=== PATIENT | male | born 1960 | race American Indian/Alaskan Native ===

== ENCOUNTER 2019-05-28 07:17 | Observation (INO) | payer OTHER ==
[2019-05-28] MEDS ORDERED: SODIUM CHLORIDE 0.9% 1000 ML 1,000 ML IV ONE (08:05)
--- NOTE | 2019-05-28 08:11 | Emergency Department Report ---
ED Syncope HPI - General Stated Complaint: WEAKNESS/ABD PAIN Time Seen by Provider: 05/28/19 08:03 Source: patient, family, EMS Exam Limitations: no limitations - History of Present Illness Initial Comments: 58-year-old male with history of hypertension presents to ED following a syncopal episode this morning. states at around 6 AM, patient got up to go to the bathroom and she heard him fall. She does report loss of consciousness. At that time, worse today she took the patient's blood pressure and systolic BP was in the 200s, so she gave him his blood pressure medication to take. EMS was called, upon arrival, patient had systolic blood pressure in the 90s, and room air O2 sats was 77%. Patient is given 250 mL bolus of MS and placed on 2 L O2 and transported to the hospital. Patient also has abdominal distention since yesterday, reports abdominal discomfort. Denies nausea, vomiting, diarrhea. Patient states he has been constipated and has not had a bowel movement in 1 week. Denies any previous abdominal surgeries. Patient denies any chest pain or shortness of breath at this time. Reports mild cough and fever last week for which he was seen by his PCP and given medications. believes it was an antibiotic but she is not sure. Pt denies history of COPD. Reports past smoking history, but states he stopped "a while ago." Timing/Prior Episodes: single episode today Precipitating Factors: Positive: lightheadedness Context: standing Loss of Consciousness: brief (seconds) Current Symptoms: denies: headache, nausea - Related Data Allergies/Adverse Reactions: Allergies No Known Allergies Allergy (Verified 05/28/19 14:09) Home Medications: Ambulatory Orders Unobtainable 05/28/19 ED Review of Systems ROS: Stated complaint: WEAKNESS/ABD PAIN Other details as noted in HPI Comment: All other systems reviewed and negative Constitutional: fever. denies: chills Respiratory: cough Cardiovascular: denies: chest pain Gastrointestinal: abdominal pain, constipation. denies: nausea, vomiting, diarrhea Neurological: denies: headache ED Past Medical Hx - Medications Home Medications: Home Medications Medication Instructions Recorded Confirmed Last Taken Type Unobtainable 05/28/19 05/28/19 Unknown History ED Physical Exam - General General appearance: alert, in no apparent distress - Head Head exam: Present: atraumatic, normocephalic - Eye Eye exam: Present: normal appearance, PERRL, EOMI - ENT ENT exam: Present: mucous membranes dry - Neck Neck exam: Present: normal inspection, full ROM - Respiratory Respiratory exam: Present: rales. Absent: respiratory distress - Cardiovascular Cardiovascular Exam: Present: regular rate, normal rhythm - GI/Abdominal GI/Abdominal exam: Present: distended. Absent: tenderness - Extremities Exam Extremities exam: Present: normal inspection. Absent: pedal edema, calf tende rness - Neurological Exam Neurological exam: Present: alert, oriented X3, CN II-XII intact. Absent: motor sensory deficit - Psychiatric Psychiatric exam: Present: normal affect, normal mood - Skin Skin exam: Present: warm, dry, intact, normal color ED Course Vital Signs 05/28/19 05/28/19 05/28/19 07:54 08:00 08:16 Temperature Pulse Rate 89 Pulse Rate [ Anterior Bilateral Throughout] Respiratory 31 H Rate Respiratory Rate [Anterior Bilateral Throughout] Blood Pressure 132/64 O2 Sat by Pulse 88 100 Oximetry 05/28/19 05/28/19 05/28/19 08:30 08:45 09:01 Temperature Pulse Rate 90 92 H Pulse Rate [ Anterior Bilateral Throughout] Respiratory 17 26 H Rate Respiratory Rate [Anterior Bilateral Throughout] Blood Pressure 132/64 132/64 123/98 O2 Sat by Pulse 100 90 99 Oximetry 05/28/19 05/28/19 05/28/19 09:38 09:46 10:00 Temperature Pulse Rate Pulse Rate [ Anterior Bilateral Throughout] Respiratory Rate Respiratory Rate [Anterior Bilateral Throughout] Blood Pressure 123/98 123/98 123/98 O2 Sat by Pulse 100 98 99 Oximetry 05/28/19 05/28/19 05/28/19 10:45 11:03 11:05 Temperature 98.0 F Pulse Rate Pulse Rate [ 95 H Anterior Bilateral Throughout] Respiratory 18 Rate Respiratory 20 Rate [Anterior Bilateral Throughout] Blood Pressure O2 Sat by Pulse 97 Oximetry - Reevaluation(s) Reevaluation #1: 05/28/19 13:58 RN just reported to me that lab called, repeat lactic acid was done and returned elevated at 3.5. Initial lactic acid was normal. Vitals have been normal. Pt currently has a room and is being transported there. Will place orders for antibiotics to be given. CXR, urine and CT negative for any source of infection. Pt did have 2 bowel movements here in ED. ED Medical Decision Making - Lab Data Result diagrams: 05/28/19 08:22 05/28/19 08:22 - EKG Data -: EKG Interpreted by Me EKG shows normal: sinus rhythm, axis, intervals, QRS complexes Rate: normal - EKG Data Interpretation: other (T wave inversions inferolaterally) - Radiology Data Radiology results: report reviewed, image reviewed Critical care attestation.: If time is entered above; I have spent that time in minutes in the direct care of this critically ill patient, excluding procedure time. ED Disposition Clinical Impression: Syncope, Hypoxia, COPD with acute exacerbation, Ileus, Thrombocytopenia, Hyperbilirubinemia Disposition: 09 OP ADMIT IP TO THIS HOSP Is pt being admited?: Yes Condition: Stable Time of Disposition: 12:32
[2019-05-28 08:34] LABS: Hematocrit 32.2 % (35.5-45.6); Hemoglobin 10.8 gm/dl (11.8-15.2); Mean Corpuscular HGB Conc 34 % (32-34); Mean Corpuscular Volume 81 fl (84-94); Red Blood Count 3.97 M/mm3 (3.65-5.03)
--- NOTE | 2019-05-28 08:37 | XRay Report ---
CHEST/ABDOMEN INDICATION / CLINICAL INFORMATION: Shortness of breath, abdominal distention. COMPARISON: None available. FINDINGS: SUPPORT DEVICES: None. HEART / MEDIASTINUM: Borderline enlarged cardiac silhouette, possibly accentuated by portable techniq ue LUNGS / PLEURA: No focal pulmonary consolidation or edema. No pleural effusion No pneumothorax. ADDITIONAL FINDINGS: No significant additional findings. ABDOMEN: Nonspecific gas-filled loops of colon are noted throughout the abdomen. No definite gas dist ended loops of small bowel to suggest the presence of obstruction. No definite free intraperitoneal g as. IMPRESSION: There are multiple gas-filled loops of colon throughout the abdomen without evidence of distended sma ll bowel loops to suggest presence of obstruction. If abdominal symptoms persist, a CT may be benefic ial for further evaluation. No evidence of acute cardiopulmonary disease. Signer Name: James Zamorano MD Signed: 05/28/2019 8:33 AM Workstation Name: [id number]
[2019-05-28 08:44] LABS: Partial Thromboplastin Time 27.8 Sec. (24.2-36.6)
[2019-05-28 08:54] LABS: INR 1.28 (0.87-1.13)
[2019-05-28 09:00] LABS: Alanine Aminotransferase 48 units/L (7-56); Albumin 4.3 g/dL (3.9-5); BUN/Creatinine Ratio 30; Bilirubin,Direct 0.4 mg/dL (0-0.2); Blood Urea Nitrogen 27 mg/dL (9-20); Calcium 8.7 mg/dL (8.4-10.2); Hemolysis Index 22
--- NOTE | 2019-05-28 10:17 | Cat Scan Report ---
CT head without contrast INDICATION : syncope, injury. TECHNIQUE: Axial imaging performed from the skull apex through the skull base without the use of con trast. All CT scans at this location are performed using CT dose reduction for ALARA by means of aut omated exposure control. COMPARISON: None FINDINGS: There is significant patient motion which limits this exam. The technologist reports these are the be st images possible. Parenchyma: No acute intracranial hemorrhage or parenchymal abnormality. Ventricles: Ventricles are normal in size and appear symmetric. Soft tissues: Soft tissues including the orbits appear normal. Bones: No acute osseous abnormality. Sinuses: Sinuses and mastoid air cells are clear. IMPRESSION: No evidence of acute intracranial abnormality. The exam is limited due to significant patient motion. If neurologic symptoms persist or additional e valuation is clinically indicated, it would be reasonable to repeat this exam or an MRI of the brain once it is felt the patient may remain still. Signer Name: James Zamorano MD Signed: 05/28/2019 10:13 AM Workstation Name: [id number]
[2019-05-28] MEDS ORDERED: ALBUTEROL 2.5 MG/3 ML NEBU IH ONE (10:20)
[2019-05-28] MEDS ORDERED: IPRATROPIUM 0.02% NEBU 2.5 ML IH ONE (10:20)
--- NOTE | 2019-05-28 10:37 | Cat Scan Report ---
CT angio chest INDICATION / CLINICAL INFORMATION: hypoxia. TECHNIQUE: Axial CT images were obtained after injection of Omnipaque 350, 100 cc IV contrast using CTA protocol . 3 plane MIP / 3D reconstructions were produced. All CT scans at this location are performed using C T dose reduction for ALARA by means of automated exposure control. COMPARISON: None available. FINDINGS: The lungs contain scattered emphysema. Negative for mass, infiltrate or pleural fluid. No mediastinal mass or adenopathy. Negative for aneurysm, dissection or pulmonary embolus. Motion artifact limits evaluation of the smal l vessels at the bases. Evaluation the bones demonstrates diffuse predominantly sclerotic change at this use small lytic area s. Imaging of the upper abdomen demonstrates distended large and small bowel loops. IMPRESSION: 1. Negative for pulmonary embolus or pneumonia. 2. Diffuse bony sclerotic change with a few small lytic areas. Underlying metabolic disease is favore d over metastatic disease. Recommend clinical correlation. 3. Probable ileus. Signer Name: Chencho Hancock MD Signed: 05/28/2019 10:33 AM Workstation Name: [id number]
--- NOTE | 2019-05-28 11:12 | Cat Scan Report ---
CT ABDOMEN AND PELVIS WITH CONTRAST HISTORY: pain, abd distention. COMPARISON: None. TECHNIQUE: CT images of the abdomen and pelvis were obtained following administration of intravenous contrast. All CT scans at this location are performed using CT dose reduction for ALARA by means of automated exposure control. CONTRAST: 100 ml of intravenous contrast administered. FINDINGS: Lungs/bones: There is mild motion artifact with mild bibasilar atelectasis. Patchy sclerosis is seen throughout the entire skeleton to include the spine, pelvis, femurs, and ribs. Abdomen/pelvis: The liver, gallbladder, spleen, pancreas, adrenals, and kidneys appear unremarkable. There is a small simple lipoma along the right flank. There is mild distention of the colon and distal small bowel tracking to the level of the proximal si gmoid colon in the mid abdomen. There are some angulated loops but no focal mass or wall thickening i s identified to suggest an underlying etiology. No pathologic peritoneal or retroperitoneal adenopath y identified. The prostate is enlarged and heterogeneous, indenting the bladder base. The bladder itself is mildly distended without wall thickening. No pelvic free fluid. IMPRESSION: 1. Abnormal distention of the distal small bowel and colon tracking to the proximal sigmoid colon as above without a focal transition point, mass, etc. to explain these findings. Ileus is in the differe ntial. 2. Incidental bony findings. Given prosthetic enlargement and heterogeneity, correlation with PSA is recommended to exclude possibility of prostate cancer. Otherwise, an alternative diffuse infiltrative process is in the differential. Signer Name: Reinaldo Lal MD Signed: 05/28/2019 11:07 AM Workstation Name: [id number]
[2019-05-28 11:45] LABS: Bilirubin,Urine Negative (Negative); Blood,Urine Negative (Negative); Color,Urine Straw (Yellow)
[2019-05-28] MEDS ORDERED: SODIUM CHLORIDE 0.9% 1000 ML IV SOLN IV ONE (14:03)
[2019-05-28 14:16] LABS: Basophils % (Manual) 0 % (0.0-1.8); Eosinophils % (Manual) 0 % (0.0-4.3); Total Cells Counted 100
[2019-05-28 14:18] LABS: Target Cells Rare
[2019-05-28 14:19] LABS: Macrocytosis Few; Tear Drop Cells Rare
[2019-05-28 14:20] LABS: Platelet Estimate Consistent w Auto
[2019-05-28 14:23] LABS: Platelet Count 59 K/mm3 (140-440)
--- NOTE | 2019-05-28 17:11 | Consultation ---
History of Present Illness Consult date: 05/28/19 Reason for consult: abdominal pain Chief complaint: Abdominal distention - History of present illness History of present illness: 58-year-old male with long-standing history of constipation presented to the emergency room with abdominal distention. He was also found to have experienced a syncopal episode with possible loss of consciousness. The patient is a poor historian at this time and his at the bedside is providing all of the history. She states that the patient will have abdominal distention, constipation intermittently and will then take a laxative. This is what he did several days ago. He had been constipated for about 1 week and drank one bottle of magnesium citrate. He then started experiencing abdominal distention but was still unable to have a bowel movement. She states that even after laxative, he frequently does not have a bowel movement for another 2-3 days. In the emergency room, the patient had 2 very large liquid bowel movements. He denies abdominal pain. He denies nausea, vomiting, fevers, chills, chest pain, shortness of breath. He is mildly confused. Patient was given juice and is tolerating a PO diet. Past History Past Medical History: other (constipation) Past Surgical History: No surgical history Social history: , lives with family Family history: no significant family history Medications and Allergies Allergies Allergy/AdvReac Type Severity Reaction Status Date / Time No Known Allergies Allergy Verified 05/28/19 14:09 Home Medications Medication Instructions Recorded Confirmed Last Taken Type Unobtainable 05/28/19 05/28/19 Unknown History Active Meds: Active Medications Cefepime HCl (Cefepime/Ns 2 Gm/100 Ml) 2 gm in 100 mls @ 200 mls/hr IV Q8HR BRE; Protocol Review of Systems ROS unobtainable: due to mental status Exam Vital Signs Pulse Ox 88 05/28/19 07:54 Narrative exam: General: Arousable, oriented to person. Confused but can be redirected with encouragement ENT: No scleral icterus or conjunctival pallor CV: s1, S2+ Resp: even and unlabored Abd: soft, distended, NT. No r/r/g Ext: no c/c/e Results - Labs 05/28/19 08:22 05/28/19 08:22 Abnormal lab results 05/28/19 05/28/19 05/28/19 Range/Units 08:22 08:22 08:22 WBC 13.4 H (4.5-11.0) K/mm3 Hgb 10.8 L (11.8-15.2) gm/dl Hct 32.2 L (35.5-45.6) % MCV 81 L (84-94) fl MCH 27 L (28-32) pg RDW 17.0 H (13.2-15.2) % Plt Count 59 L (140-440) K/mm3 Seg Neuts % (Manual) 80.0 H (40.0-70.0) % Nucleated RBC % 2.0 H (0.0-0.9) % Seg Neutrophils # Man 10.7 H (1.8-7.7) K/mm3 PT 16.2 H (12.2-14.9) Sec. INR 1.28 H (0.87-1.13) D-Dimer > 63406 H (0-234) ng/mlDDU BUN 27 H (9-20) mg/dL Glucose 130 H (75-100) mg/dL POC Glucose (70-105) Lactic Acid (0.7-2.0) mmol/L Total Bilirubin 2.70 H (0.1-1.2) mg/dL Direct Bilirubin 0.4 H (0-0.2) mg/dL AST 74 H (5-40) units/L Alkaline Phosphatase 184 H (35-129) units/L Lipase 9 L (13-60) units/L 05/28/19 05/28/19 Range/Units 13:04 13:07 WBC (4.5-11.0) K/mm3 Hgb (11.8-15.2) gm/dl Hct (35.5-45.6) % MCV (84-94) fl MCH (28-32) pg RDW (13.2-15.2) % Plt Count (140-440) K/mm3 Seg Neuts % (Manual) (40.0-70.0) % Nucleated RBC % (0.0-0.9) % Seg Neutrophils # Man (1.8-7.7) K/mm3 PT (12.2-14.9) Sec. INR (0.87-1.13) D-Dimer (0-234) ng/mlDDU BUN (9-20) mg/dL Glucose (75-100) mg/dL POC Glucose 116 H (70-105) Lactic Acid 3.50 H* (0.7-2.0) mmol/L Total Bilirubin (0.1-1.2) mg/dL Direct Bilirubin (0-0.2) mg/dL AST (5-40) units/L Alkaline Phosphatase (35-129) units/L Lipase (13-60) units/L Diabetes panel 05/28/19 Range/Units 08:22 Sodium 139 (137-145) mmol/L Potassium 4.9 (3.6-5.0) mmol/L Chloride 99.6 (98-107) mmol/L Carbon Dioxide 23 (22-30) mmol/L BUN 27 H (9-20) mg/dL Creatinine 0.9 (0.8-1.5) mg/dL Glucose 130 H (75-100) mg/dL Calcium 8.7 (8.4-10.2) mg/dL AST 74 H (5-40) units/L ALT 48 (7-56) units/L Alkaline Phosphatase 184 H (35-129) units/L Total Protein 7.1 (6.3-8.2) g/dL Albumin 4.3 (3.9-5) g/dL Calcium panel 05/28/19 Range/Units 08:22 Calcium 8.7 (8.4-10.2) mg/dL Albumin 4.3 (3.9-5) g/dL Pituitary panel 05/28/19 Range/Units 08:22 Sodium 139 (137-145) mmol/L Potassium 4.9 (3.6-5.0) mmol/L Chloride 99.6 (98-107) mmol/L Carbon Dioxide 23 (22-30) mmol/L BUN 27 H (9-20) mg/dL Creatinine 0.9 (0.8-1.5) mg/dL Glucose 130 H (75-100) mg/dL Calcium 8.7 (8.4-10.2) mg/dL Adrenal panel 05/28/19 Range/Units 08:22 Sodium 139 (137-145) mmol/L Potassium 4.9 (3.6-5.0) mmol/L Chloride 99.6 (98-107) mmol/L Carbon Dioxide 23 (22-30) mmol/L BUN 27 H (9-20) mg/dL Creatinine 0.9 (0.8-1.5) mg/dL Glucose 130 H (75-100) mg/dL Calcium 8.7 (8.4-10.2) mg/dL Total Bilirubin 2.70 H (0.1-1.2) mg/dL AST 74 H (5-40) units/L ALT 48 (7-56) units/L Alkaline Phosphatase 184 H (35-129) units/L Total Protein 7.1 (6.3-8.2) g/dL Albumin 4.3 (3.9-5) g/dL - Imaging Abdominal x-ray: report reviewed, image reviewed CT scan - abdomen: report reviewed, image reviewed CT scan - chest: report reviewed CT scan - pelvis: report reviewed, image reviewed Assessment and Plan 58-year-old male with 1. colonic ileus, chronic constipation Plan: 1. ok to start diet 2. gentle IVF 3. Patient with bowel function. Colonic ileus is likely chronic based on patient's history. No surgical intervention. 4. CT chest negative for PE 5. recommend hematology evaluation for low platelets, abnormal prostate on CT Discussed with Dr. Montgomery . Will s/o Thank you, please call with questions.
[2019-05-28] MEDS: CEFEPIME/NS 2 GM/100 ML 2 GM/100 ML BAG IV SCH ×2 (18:47→22:40)
[2019-05-28] MEDS ORDERED: SODIUM CHLORIDE 0.9% 1000 ML 1,000 ML ONE (18:53)
[2019-05-28] MEDS ORDERED: SODIUM CHLORIDE 0.9% 1000 ML 1,000 ML IV SCH (19:45)
[2019-05-28] MEDS ORDERED: ACETAMINOPHEN 325 MG TAB PO ONE (20:20)
[2019-05-28] MEDS ORDERED: LORazepam 2 MG/ML VIAL IV ONE ×2 (20:21→23:45)
[2019-05-28] MEDS ORDERED: ONDANSETRON 4 MG/2 ML INJ IV PRN (22:29)
[2019-05-28] MEDS ORDERED: ACETAMINOPHEN 325 MG TAB PO PRN (22:29)
[2019-05-28] MEDS: LACTULOSE 20 GM/30 ML ORAL LIQD PO SCH (23:47)
[2019-05-29 05:10] LABS: Hematocrit 27.9 % (35.5-45.6); Hemoglobin 9.3 gm/dl (11.8-15.2); Mean Corpuscular HGB Conc 33 % (32-34); Mean Corpuscular Volume 82 fl (84-94); Red Blood Count 3.39 M/mm3 (3.65-5.03); Red Cell Distribution Width 17.1 % (13.2-15.2)
[2019-05-29 05:24] LABS: Platelet Count 49 K/mm3 (140-440)
[2019-05-29 05:33] LABS: Alanine Aminotransferase 41 units/L (7-56); Albumin 3.7 g/dL (3.9-5); BUN/Creatinine Ratio 25; Blood Urea Nitrogen 15 mg/dL (9-20); Calcium 7.7 mg/dL (8.4-10.2); Hemolysis Index 11
[2019-05-29 06:37] LABS: Band Neutrophils # (Manual) 0.1 K/mm3; Basophils % (Manual) 0 % (0.0-1.8); Schistocytes Few; Total Cells Counted 100
[2019-05-29 06:38] LABS: Ovalocytes Rare; Platelet Estimate Consistent w Auto; Target Cells Few
[2019-05-29] MEDS: CEFEPIME/NS 2 GM/100 ML 2 GM/100 ML BAG IV SCH ×3 (06:42→22:26)
--- NOTE | 2019-05-29 06:57 | History and Physical Report ---
History of Present Illness Date of examination: 05/28/19 Date of admission: 05/28/19 12:38 Chief complaint: Abd pain for 2 days History of present illness: 58-year-old male with long-standing history of constipation presented to the emergency room with abdominal distention. He was also found to have experienced a syncopal episode with possible loss of consciousness. The patient is a poor historian at this time and his at the bedside is providing all of the history. She states that the patient will have abdominal distention, constipation intermittently and will then take a laxative. This is what he did several days ago. He had been constipated for about 1 week and drank one bottle of magnesium citrate. He then started experiencing abdominal distention but was still unable to have a bowel movement. She states that even after laxative, he frequently does not have a bowel movement for another 2-3 days. In the emergency room, the patient had 2 very large liquid bowel movements. He denies abdominal pain. He denies nausea, vomiting, fevers, chills, chest pain, shortness of breath. He is mildly confused. Patient was given juice and is tolerating a PO diet. Past History Past Medical History: other (constipation) Past Surgical History: No surgical history Social history: , lives with family Family history: no significant family history Past History Past Medical History: other (constipation) Past Surgical History: No surgical history Social history: , lives with family Family history: no significant family history Medications and Allergies Allergies Allergy/AdvReac Type Severity Reaction Status Date / Time No Known Allergies Allergy Verified 05/28/19 14:09 Home Medications Medication Instructions Recorded Confirmed Last Taken Type Unobtainable 05/28/19 05/28/19 Unknown History Active Meds: Active Medications Acetaminophen (Tylenol) 650 mg PO Q4H PRN PRN Reason: Pain MILD(1-3)/Fever >100.5/LIZ Cefepime HCl (Cefepime/Ns 2 Gm/100 Ml) 2 gm in 100 mls @ 200 mls/hr IV Q8HR BRE; Protocol Last Admin: 05/29/19 06:42 Dose: 200 mls/hr Documented by: Sodium Chloride (Nacl 0.9% 1000 Ml) 1,000 mls @ 125 mls/hr IV DIRECT BRE Last Admin: 05/29/19 06:09 Dose: 125 mls/hr Documented by: Lactulose (Cephulac) 30 gm PO QDAY BRE Last Admin: 05/28/19 23:47 Dose: 30 gm Documented by: Ondansetron HCl (Zofran) 4 mg IV Q8H PRN PRN Reason: Nausea And Vomiting Sodium Chloride (Sodium Chloride Flush Syringe 10 Ml) 10 ml IV BID BRE Sodium Chloride (Sodium Chloride Flush Syringe 10 Ml) 10 ml IV PRN PRN PRN Reason: LINE FLUSH Review of Systems All systems: negative Exam - Constitutional Vitals: Temp Pulse Resp BP Pulse Ox 98.0 F 111 H 18 162/107 97 05/29/19 03:46 05/29/19 03:46 05/29/19 03:46 05/29/19 03:46 05/29/19 03:46 General appearance: Present: no acute distress, well-nourished - EENT Eyes: Present: PERRL ENT: hearing intact, clear oral mucosa - Neck Neck: Present: supple, normal ROM - Respiratory Respiratory effort: normal Respiratory: bilateral: CTA - Cardiovascular Heart rate: 78 Heart Sounds: Present: S1 & S2. Absent: rub, click - Extremities Extremities: pulses symmetrical, No edema Peripheral Pulses: within normal limits - Abdominal General gastrointestinal: Present: soft, non-tender, non-distended, normal bowel sounds Male genitourinary: Present: normal - Integumentary Integumentary: Present: clear, warm, dry - Musculoskeletal Musculoskeletal: gait normal, strength equal bilaterally - Psychiatric Psychiatric: appropriate mood/affect, intact judgment & insight - Neurologic Neurologic: CNII-XII intact, moves all extremities - Allied Health Allied health notes reviewed: nursing, case management Results - Labs CBC & Chem 7: 05/29/19 04:26 05/29/19 04:26 Labs: Laboratory Last Values WBC 11.9 K/mm3 (4.5-11.0) H 05/29/19 04:26 RBC 3.39 M/mm3 (3.65-5.03) L 05/29/19 04:26 Hgb 9.3 gm/dl (11.8-15.2) L 05/29/19 04:26 Hct 27.9 % (35.5-45.6) L 05/29/19 04:26 MCV 82 fl (84-94) L 05/29/19 04:26 MCH 28 pg (28-32) 05/29/19 04:26 MCHC 33 % (32-34) 05/29/19 04:26 RDW 17.1 % (13.2-15.2) H 05/29/19 04:26 Plt Count 49 K/mm3 (140-440) L 05/29/19 04:26 Add Manual Diff Complete 05/29/19 04:26 Total Counted 100 05/29/19 04:26 Seg Neuts % (Manual) 78.0 % (40.0-70.0) H 05/29/19 04:26 Band Neutrophils % 1.0 % 05/29/19 04:26 Lymphocytes % (Manual) 16.0 % (13.4-35.0) 05/29/19 04:26 Reactive Lymphs % (Man) 0 % 05/29/19 04:26 Monocytes % (Manual) 4.0 % (0.0-7.3) 05/29/19 04:26 Eosinophils % (Manual) 1.0 % (0.0-4.3) 05/29/19 04:26 Basophils % (Manual) 0 % (0.0-1.8) 05/29/19 04:26 Metamyelocytes % 0 % 05/29/19 04:26 Myelocytes % 0 % 05/29/19 04:26 Promyelocytes % 0 % 05/29/19 04:26 Blast Cells % 0 % 05/29/19 04:26 Nucleated RBC % Not Reportable 05/29/19 04:26 Seg Neutrophils # Man 9.3 K/mm3 (1.8-7.7) H 05/29/19 04:26 Band Neutrophils # 0.1 K/mm3 05/29/19 04:26 Lymphocytes # (Manual) 1.9 K/mm3 (1.2-5.4) 05/29/19 04:26 Abs React Lymphs (Man) 0.0 K/mm3 05/29/19 04:26 Monocytes # (Manual) 0.5 K/mm3 (0.0-0.8) 05/29/19 04:26 Eosinophils # (Manual) 0.1 K/mm3 (0.0-0.4) 05/29/19 04:26 Basophils # (Manual) 0.0 K/mm3 (0.0-0.1) 05/29/19 04:26 Metamyelocytes # 0.0 K/mm3 05/29/19 04:26 Myelocytes # 0.0 K/mm3 05/29/19 04:26 Promyelocytes # 0.0 K/mm3 05/29/19 04:26 Blast Cells # 0.0 K/mm3 05/29/19 04:26 WBC Morphology Not Reportable 05/29/19 04:26 Hypersegmented Neuts Not Reportable 05/29/19 04:26 Hyposegmented Neuts Not Reportable 05/29/19 04:26 Hypogranular Neuts Not Reportable 05/29/19 04:26 Smudge Cells Not Reportable 05/29/19 04:26 Toxic Granulation Not Reportable 05/29/19 04:26 Toxic Vacuolation Not Reportable 05/29/19 04:26 Dohle Bodies Not Reportable 05/29/19 04:26 Pelger-Huet Anomaly Not Reportable 05/29/19 04:26 Mark Anthony Rods Not Reportable 05/29/19 04:26 Platelet Estimate Consistent w auto 05/29/19 04:26 Clumped Platelets Not Reportable 05/29/19 04:26 Plt Clumps, EDTA Not Reportable 05/29/19 04:26 Large Platelets Not Reportable 05/29/19 04:26 Giant Platelets Not Reportable 05/29/19 04:26 Platelet Satelliting Not Reportable 05/29/19 04:26 Plt Morphology Comment Not Reportable 05/29/19 04:26 RBC Morphology Not Reportable 05/29/19 04:26 Dimorphic RBCs Not Reportable 05/29/19 04:26 Polychromasia Not Reportable 05/29/19 04:26 Hypochromasia Not Reportable 05/29/19 04:26 Poikilocytosis Not Reportable 05/29/19 04:26 Anisocytosis Not Reportable 05/29/19 04:26 Microcytosis Not Reportable 05/29/19 04:26 Macrocytosis Not Reportable 05/29/19 04:26 Spherocytes Not Reportable 05/29/19 04:26 Pappenheimer Bodies Not Reportable 05/29/19 04:26 Sickle Cells Not Reportable 05/29/19 04:26 Target Cells Few 05/29/19 04:26 Tear Drop Cells Not Reportable 05/29/19 04:26 Ovalocytes Rare 05/29/19 04:26 Helmet Cells Not Reportable 05/29/19 04:26 Liz-Strang Bodies Not Reportable 05/29/19 04:26 [place] Rings Not Reportable 05/29/19 04:26 Yousif Cells Not Reportable 05/29/19 04:26 Bite Cells Not Reportable 05/29/19 04:26 Crenated Cell Not Reportable 05/29/19 04:26 Elliptocytes Not Reportable 05/29/19 04:26 Acanthocytes (Spur) Not Reportable 05/29/19 04:26 Rouleaux Not Reportable 05/29/19 04:26 Hemoglobin C Crystals Not Reportable 05/29/19 04:26 Schistocytes Few 05/29/19 04:26 Malaria parasites Not Reportable 05/29/19 04:26 Calin Bodies Not Reportable 05/29/19 04:26 Hem Pathologist Commnt No 05/29/19 04:26 PT 16.2 Sec. (12.2-14.9) H 05/28/19 08:22 INR 1.28 (0.87-1.13) H 05/28/19 08:22 APTT 27.8 Sec. (24.2-36.6) 05/28/19 08:22 D-Dimer > 03714 ng/mlDDU (0-234) H 05/28/19 08:22 Sodium 143 mmol/L (137-145) 05/29/19 04:26 Potassium 4.1 mmol/L (3.6-5.0) 05/29/19 04:26 Chloride 109.4 mmol/L (98-107) H 05/29/19 04:26 Carbon Dioxide 24 mmol/L (22-30) 05/29/19 04:26 Anion Gap 14 mmol/L 05/29/19 04:26 BUN 15 mg/dL (9-20) 05/29/19 04:26 Creatinine 0.6 mg/dL (0.8-1.5) L 05/29/19 04:26 Estimated GFR > 60 ml/min 05/29/19 04:26 BUN/Creatinine Ratio 25 % 05/29/19 04:26 Glucose 125 mg/dL (75-100) H 05/29/19 04:26 POC Glucose 116 (70-105) H 05/28/19 13:04 Hemoglobin A1c 4.7 % (4-6) 05/29/19 04:26 Lactic Acid 1.30 mmol/L (0.7-2.0) 05/28/19 20:29 Calcium 7.7 mg/dL (8.4-10.2) L 05/29/19 04:26 Total Bilirubin 1.60 mg/dL (0.1-1.2) H 05/29/19 04:26 Direct Bilirubin 0.4 mg/dL (0-0.2) H 05/28/19 08:22 Indirect Bilirubin 2.3 mg/dL 05/28/19 08:22 AST 61 units/L (5-40) H 05/29/19 04:26 ALT 41 units/L (7-56) 05/29/19 04:26 Alkaline Phosphatase 158 units/L (35-129) H 05/29/19 04:26 Troponin T < 0.010 ng/mL (0.00-0.029) 05/28/19 08:22 NT-Pro-B Natriuret Pep 635.6 pg/mL (0-900) 05/28/19 08:22 Total Protein 6.9 g/dL (6.3-8.2) 05/29/19 04:26 Albumin 3.7 g/dL (3.9-5) L 05/29/19 04:26 Albumin/Globulin Ratio 1.2 % 05/29/19 04:26 Lipase 9 units/L (13-60) L 05/28/19 08:22 Urine Color Straw (Yellow) 05/28/19 Unknown Urine Turbidity Clear (Clear) 05/28/19 Unknown Urine pH 5.0 (5.0-7.0) 05/28/19 Unknown Ur Specific [place] 1.015 (1.003-1.030) 05/28/19 Unknown Urine Protein 30 mg/dl mg/dL (Negative) 05/28/19 Unknown Urine Glucose (UA) Negative mg/dL (Negative) 05/28/19 Unknown Urine Ketones Negative mg/dL (Negative) 05/28/19 Unknown Urine Blood Negative (Negative) 05/28/19 Unknown Urine Nitrite Negative (Negative) 05/28/19 Unknown Urine Bilirubin Negative (Negative) 05/28/19 Unknown Urine Urobilinogen 2.0 mg/dL (<2.0) 05/28/19 Unknown Urine WBC (Auto) 5.0 /HPF (0.0-6.0) 05/28/19 Unknown Urine RBC (Auto) 15.0 /HPF (0.0-6.0) 05/28/19 Unknown U Epithel Cells (Auto) 0.0 /HPF (0-13.0) 05/28/19 Unknown Blood Type B POSITIVE 05/28/19 15:23 Antibody Screen Negative 05/28/19 15:23 - Imaging and Cardiology Chest x-ray: report reviewed (NAF) CT scan - abdomen: report reviewed Imaging and Cardiology: Abd Ct IMPRESSION: 1. Abnormal distention of the distal small bowel and colon tracking to the proximal sigmoid colon as above without a focal transition point, mass, etc. to explain these findings. Ileus is in the differential. 2. Incidental bony findings. Given prosthetic enlargement and heterogeneity, correlation with PSA is recommended to exclude possibility of prostate cancer. Otherwise, an alternative diffuse infiltrative process is in the differential. Assessment and Plan Advance Directives: Yes - Patient Problems (1) Ileus Current Visit: Yes Status: Acute Plan to address problem: Resolved Discussed with surgery No further intervention Lactulose for chronic constipation GI consult (2) Syncope Current Visit: Yes Status: Acute Qualifiers: Syncope type: vasovagal syncope Qualified Code(s): R55 - Syncope and collapse Plan to address problem: CDS ordered (3) DVT prophylaxis Current Visit: Yes Status: Acute Plan to address problem: On Heparin
[2019-05-29] MEDS: LACTULOSE 20 GM/30 ML ORAL LIQD PO SCH (10:50)
--- NOTE | 2019-05-29 14:58 | Vascular Lab Report ---
"DUPLEX DOPPLER ULTRASOUND CAROTID, BILATERAL INDICATION: Syncope. FINDINGS: RIGHT CAROTID: Mild atherosclerotic plaque. Right CCA velocity: 201 cm/sec. Right ICA peak systolic velocity: 100 cm/sec. ICA/CCA PSV Ratio: 1.0. Right Vertebral Artery: Antegrade flow. LEFT CAROTID: Mild atherosclerotic plaque Left CCA velocity: 124 cm/sec. Left ICA peak systolic velocity: 117 cm/sec. ICA/CCA PSV Ratio: 1.2. Left Vertebral Artery: Antegrade flow. IMPRESSION: 1. Right Internal Carotid Artery: Less than 50% diameter stenosis. 2. Left Internal Carotid Artery: Less than 50% diameter stenosis. Velocity criteria are extrapolated from diameter data as defined by the Society of Radiologists in Ul trasound Consensus Conference, Radiology 2003; 229;340-346. Degree of Stenosis (%) || ICA PSV (cm/sec) || Plaque estimate (%) || ICA/CCA PSV Ratio Normal <125 None <2.0 <50 <125 <50 <2.0 50-69 125-230 50 2.0-4.0 70 but less than 100 >230 50 >4.0 Near occlusion High, low, or none visible variable Total occlusion None visible; no lumen N/A Signer Name: Gaetano Gonzalez MD Signed: 05/29/2019 2:53 PM Workstation Name: [email or web address]"
--- NOTE | 2019-05-29 15:44 | Discharge Summary ---
Providers - Providers Date of Admission: 05/28/19 12:38 Date of discharge: 05/29/19 Attending physician: VOLODYMYR WELLS 05/28/19 12:39 Consult to Physician [CONS] Stat Comment: DR MARIN JACOME W/DR GONCALVES @1237 Consulting Provider: SELENA GONCALVES Physician Instructions: Reason For Exam: ileus [facility] Condition: Stable Pertinent studies: Abdomen/pelvis CT Chest/abdomen XRY Chest CTA Head CT Carotid doppler Hospital course: Discharge diagnosis: (1) Ileus, chronic GS consulted and recommended no further intervention cont diet as tolerated and stool softner CT abdomen/pelvis w/o any obstruction or mass (2) Syncope, vasovagal due to dehydration s/p IV fluid, Ct head negative Carotid doppler <50% stenosis (3) SIRS, w/o infectious cause found - negative blood cx, no PNA on CT chest, UA negative - d/c home with outpt f/u w/o abx (4) Diffuse sclerotic sandra lesion - out Pt f/u, PSA was normal (5) Thrombocytopenia and chronic anemia, outpt f/u with hematology - no acute sign of bleeding, h/H stable (6) Elevated LFT, trended down Disposition: DC-01 TO HOME OR SELFCARE Time spent for discharge: 34 minutes Core Measure Documentation - Palliative Care Palliative Care/ Comfort Measures: Not Applicable - Core Measures Any of the following diagnoses?: none Exam - Constitutional Vitals: Temp Pulse Resp BP Pulse Ox 98.7 F 102 H 18 133/81 97 05/29/19 08:26 05/29/19 08:26 05/29/19 08:26 05/29/19 08:26 05/29/19 14:00 General appearance: Present: no acute distress - EENT Eyes: Present: PERRL ENT: hearing intact, clear oral mucosa - Neck Neck: Present: supple, normal ROM - Respiratory Respiratory effort: normal Respiratory: bilateral: CTA - Cardiovascular Heart Sounds: Present: S1 & S2. Absent: rub, click - Extremities Extremities: pulses symmetrical, No edema Peripheral Pulses: within normal limits - Abdominal General gastrointestinal: Present: soft, non-tender, non-distended, normal bowel sounds - Integumentary Integumentary: Present: clear, warm, dry - Neurologic Neurologic: moves all extremities Plan Activity: advance as tolerated, fall precautions Weight Bearing Status: Non-Weight Bearing Diet: advance as tolerated Follow up with: COLBY ROMAINESAINT CLAIR MD MAMI [Primary Care Provider] - 3-5 Days YENI DOE MD [Staff Physician] - 7 Days PRITI RODGERS MD [Staff Physician] - 7 Days Prescriptions: Lactulose [Cephulac] 30 gm PO QDAY 14 Days
[2019-05-29] MEDS ORDERED: hydrALAZINE 20 MG/1 ML INJ IV ONE (19:06)
[2019-05-29] MEDS ORDERED: ZIPRASIDONE MESYLATE 20 MG VIAL IM PRN (21:14)
[2019-05-29] MEDS ORDERED: hydrALAZINE 20 MG/1 ML INJ IV PRN (21:20)
[2019-05-29] MEDS ORDERED: WATER FOR INJ Sterile (PF) 10 ML ONE (22:08)
[2019-05-30] MEDS ORDERED: hydrALAZINE 20 MG/1 ML INJ IV PRN (00:45)
[2019-05-30] MEDS: CEFEPIME/NS 2 GM/100 ML 2 GM/100 ML BAG IV SCH (05:52)
--- NOTE | 2019-05-30 10:30 | Progress Note ---
Assessment and Plan Assessment and plan: -- Syncope, vasovagal due to dehydration s/p IV fluid, Ct head negative Carotid doppler <50% stenosis --Ileus, chronic GS consulted and recommended no further intervention cont diet as tolerated and stool softner CT abdomen/pelvis w/o any obstruction or mass -- SIRS, w/o infectious cause found - negative blood cx, no PNA on CT chest, UA negative - d/c home with outpt f/u w/o abx -- Diffuse sclerotic sandra lesion - out Pt f/u, PSA was normal --Thrombocytopenia and chronic anemia, outpt f/u with hematology - no acute sign of bleeding, h/H stable -- Elevated LFT, trended down Stable for discharge Hospitalist Physical - Constitutional Vitals: Temp Pulse Resp BP Pulse Ox 98.1 F 66 18 172/91 84 05/30/19 07:15 05/30/19 07:15 05/30/19 07:15 05/30/19 07:15 05/30/19 07:15 General appearance: Present: no acute distress Results - Labs CBC & Chem 7: 05/29/19 04:26 05/29/19 04:26 Labs: Laboratory Last Values WBC 11.9 K/mm3 (4.5-11.0) H 05/29/19 04:26 RBC 3.39 M/mm3 (3.65-5.03) L 05/29/19 04:26 Hgb 9.3 gm/dl (11.8-15.2) L 05/29/19 04:26 Hct 27.9 % (35.5-45.6) L 05/29/19 04:26 MCV 82 fl (84-94) L 05/29/19 04:26 MCH 28 pg (28-32) 05/29/19 04:26 MCHC 33 % (32-34) 05/29/19 04:26 RDW 17.1 % (13.2-15.2) H 05/29/19 04:26 Plt Count 49 K/mm3 (140-440) L 05/29/19 04:26 Add Manual Diff Complete 05/29/19 04:26 Total Counted 100 05/29/19 04:26 Seg Neuts % (Manual) 78.0 % (40.0-70.0) H 05/29/19 04:26 Band Neutrophils % 1.0 % 05/29/19 04:26 Lymphocytes % (Manual) 16.0 % (13.4-35.0) 05/29/19 04:26 Reactive Lymphs % (Man) 0 % 05/29/19 04:26 Monocytes % (Manual) 4.0 % (0.0-7.3) 05/29/19 04:26 Eosinophils % (Manual) 1.0 % (0.0-4.3) 05/29/19 04:26 Basophils % (Manual) 0 % (0.0-1.8) 05/29/19 04:26 Metamyelocytes % 0 % 05/29/19 04:26 Myelocytes % 0 % 05/29/19 04:26 Promyelocytes % 0 % 05/29/19 04:26 Blast Cells % 0 % 05/29/19 04:26 Nucleated RBC % Not Reportable 05/29/19 04:26 Seg Neutrophils # Man 9.3 K/mm3 (1.8-7.7) H 05/29/19 04:26 Band Neutrophils # 0.1 K/mm3 05/29/19 04:26 Lymphocytes # (Manual) 1.9 K/mm3 (1.2-5.4) 05/29/19 04:26 Abs React Lymphs (Man) 0.0 K/mm3 05/29/19 04:26 Monocytes # (Manual) 0.5 K/mm3 (0.0-0.8) 05/29/19 04:26 Eosinophils # (Manual) 0.1 K/mm3 (0.0-0.4) 05/29/19 04:26 Basophils # (Manual) 0.0 K/mm3 (0.0-0.1) 05/29/19 04:26 Metamyelocytes # 0.0 K/mm3 05/29/19 04:26 Myelocytes # 0.0 K/mm3 05/29/19 04:26 Promyelocytes # 0.0 K/mm3 05/29/19 04:26 Blast Cells # 0.0 K/mm3 05/29/19 04:26 WBC Morphology Not Reportable 05/29/19 04:26 Hypersegmented Neuts Not Reportable 05/29/19 04:26 Hyposegmented Neuts Not Reportable 05/29/19 04:26 Hypogranular Neuts Not Reportable 05/29/19 04:26 Smudge Cells Not Reportable 05/29/19 04:26 Toxic Granulation Not Reportable 05/29/19 04:26 Toxic Vacuolation Not Reportable 05/29/19 04:26 Dohle Bodies Not Reportable 05/29/19 04:26 Pelger-Huet Anomaly Not Reportable 05/29/19 04:26 Mark Anthony Rods Not Reportable 05/29/19 04:26 Platelet Estimate Consistent w auto 05/29/19 04:26 Clumped Platelets Not Reportable 05/29/19 04:26 Plt Clumps, EDTA Not Reportable 05/29/19 04:26 Large Platelets Not Reportable 05/29/19 04:26 Giant Platelets Not Reportable 05/29/19 04:26 Platelet Satelliting Not Reportable 05/29/19 04:26 Plt Morphology Comment Not Reportable 05/29/19 04:26 RBC Morphology Not Reportable 05/29/19 04:26 Dimorphic RBCs Not Reportable 05/29/19 04:26 Polychromasia Not Reportable 05/29/19 04:26 Hypochromasia Not Reportable 05/29/19 04:26 Poikilocytosis Not Reportable 05/29/19 04:26 Anisocytosis Not Reportable 05/29/19 04:26 Microcytosis Not Reportable 05/29/19 04:26 Macrocytosis Not Reportable 05/29/19 04:26 Spherocytes Not Reportable 05/29/19 04:26 Pappenheimer Bodies Not Reportable 05/29/19 04:26 Sickle Cells Not Reportable 05/29/19 04:26 Target Cells Few 05/29/19 04:26 Tear Drop Cells Not Reportable 05/29/19 04:26 Ovalocytes Rare 05/29/19 04:26 Helmet Cells Not Reportable 05/29/19 04:26 Liz-Burley Bodies Not Reportable 05/29/19 04:26 [place] Rings Not Reportable 05/29/19 04:26 [place] Cells Not Reportable 05/29/19 04:26 Bite Cells Not Reportable 05/29/19 04:26 Crenated Cell Not Reportable 05/29/19 04:26 Elliptocytes Not Reportable 05/29/19 04:26 Acanthocytes (Spur) Not Reportable 05/29/19 04:26 Rouleaux Not Reportable 05/29/19 04:26 Hemoglobin C Crystals Not Reportable 05/29/19 04:26 Schistocytes Few 05/29/19 04:26 Malaria parasites Not Reportable 05/29/19 04:26 Calin Bodies Not Reportable 05/29/19 04:26 Hem Pathologist Commnt No 05/29/19 04:26 PT 16.2 Sec. (12.2-14.9) H 05/28/19 08:22 INR 1.28 (0.87-1.13) H 05/28/19 08:22 APTT 27.8 Sec. (24.2-36.6) 05/28/19 08:22 D-Dimer > 45942 ng/mlDDU (0-234) H 05/28/19 08:22 Sodium 143 mmol/L (137-145) 05/29/19 04:26 Potassium 4.1 mmol/L (3.6-5.0) 05/29/19 04:26 Chloride 109.4 mmol/L (98-107) H 05/29/19 04:26 Carbon Dioxide 24 mmol/L (22-30) 05/29/19 04:26 Anion Gap 14 mmol/L 05/29/19 04:26 BUN 15 mg/dL (9-20) 05/29/19 04:26 Creatinine 0.6 mg/dL (0.8-1.5) L 05/29/19 04:26 Estimated GFR > 60 ml/min 05/29/19 04:26 BUN/Creatinine Ratio 25 % 05/29/19 04:26 Glucose 125 mg/dL (75-100) H 05/29/19 04:26 POC Glucose 116 (70-105) H 05/28/19 13:04 Hemoglobin A1c 4.7 % (4-6) 05/29/19 04:26 Lactic Acid 1.30 mmol/L (0.7-2.0) 05/28/19 20:29 Calcium 7.7 mg/dL (8.4-10.2) L 05/29/19 04:26 Total Bilirubin 1.60 mg/dL (0.1-1.2) H 05/29/19 04:26 Direct Bilirubin 0.4 mg/dL (0-0.2) H 05/28/19 08:22 Indirect Bilirubin 2.3 mg/dL 05/28/19 08:22 AST 61 units/L (5-40) H 05/29/19 04:26 ALT 41 units/L (7-56) 05/29/19 04:26 Alkaline Phosphatase 158 units/L (35-129) H 05/29/19 04:26 Troponin T < 0.010 ng/mL (0.00-0.029) 05/28/19 08:22 NT-Pro-B Natriuret Pep 635.6 pg/mL (0-900) 05/28/19 08:22 Total Protein 6.9 g/dL (6.3-8.2) 05/29/19 04:26 Albumin 3.7 g/dL (3.9-5) L 05/29/19 04:26 Albumin/Globulin Ratio 1.2 % 05/29/19 04:26 Lipase 9 units/L (13-60) L 05/28/19 08:22 Prostate Specific Ag 3.59 ng/mL (0.00-4.00) 05/29/19 08:29 Urine Color Straw (Yellow) 05/28/19 Unknown Urine Turbidity Clear (Clear) 05/28/19 Unknown Urine pH 5.0 (5.0-7.0) 05/28/19 Unknown Ur Specific [place] 1.015 (1.003-1.030) 05/28/19 Unknown Urine Protein 30 mg/dl mg/dL (Negative) 05/28/19 Unknown Urine Glucose (UA) Negative mg/dL (Negative) 05/28/19 Unknown Urine Ketones Negative mg/dL (Negative) 05/28/19 Unknown Urine Blood Negative (Negative) 05/28/19 Unknown Urine Nitrite Negative (Negative) 05/28/19 Unknown Urine Bilirubin Negative (Negative) 05/28/19 Unknown Urine Urobilinogen 2.0 mg/dL (<2.0) 05/28/19 Unknown Urine WBC (Auto) 5.0 /HPF (0.0-6.0) 05/28/19 Unknown Urine RBC (Auto) 15.0 /HPF (0.0-6.0) 05/28/19 Unknown U Epithel Cells (Auto) 0.0 /HPF (0-13.0) 05/28/19 Unknown Blood Type B POSITIVE 05/28/19 15:23 Antibody Screen Negative 05/28/19 15:23 Active Medications - Current Medications Current Medications: Generic Name Dose Route Start Last Admin Trade Name Freq PRN Reason Stop Dose Admin Acetaminophen 650 mg 05/28/19 22:29 Tylenol PO Q4H PRN Pain MILD(1-3)/Fever >100.5/LIZ Hydralazine HCl 5 mg 05/30/19 00:45 Apresoline IV Q30MIN PRN Hypertension Cefepime HCl 2 gm in 100 mls @ 200 mls/hr 05/28/19 15:00 05/30/19 05:52 Cefepime/Ns 2 Gm/100 Ml IV 06/01/19 14:59 200 mls/hr Q8HR BRE Administration Protocol Sodium Chloride 1,000 mls @ 125 mls/hr 05/28/19 19:45 05/29/19 06:09 Nacl 0.9% 1000 Ml IV 125 mls/hr DIRECT BRE Administration Lactulose 30 gm 05/28/19 23:00 05/29/19 10:50 Cephulac PO 30 gm QDAY BRE Administration Ondansetron HCl 4 mg 05/28/19 22:29 Zofran IV Q8H PRN Nausea And Vomiting Sodium Chloride 10 ml 05/29/19 10:00 05/29/19 22:25 Sodium Chloride Flush Syringe 10 Ml IV 10 ml BID BRE Administration Sodium Chloride 10 ml 05/28/19 22:29 Sodium Chloride Flush Syringe 10 Ml IV PRN PRN LINE FLUSH Ziprasidone 10 mg 05/29/19 21:14 Geodon IM Q12H PRN Agitation
[2019-05-30] MEDS ORDERED: hydrALAZINE 25 MG TAB PO ONE (10:52)
[2019-05-30] MEDS: LACTULOSE 20 GM/30 ML ORAL LIQD PO SCH (10:54)
--- NOTE | 2019-05-30 11:11 | Discharge Summary ---
Providers - Providers Date of Admission: 05/28/19 12:38 Date of discharge: 05/30/19 Attending physician: CONNER BUNDY 05/28/19 12:39 Consult to Physician [CONS] Stat Comment: DR MARIN JACOME W/DR GONCALVES @1239 Consulting Provider: SELENA GONCALVES Physician Instructions: Reason For Exam: ileus [facility] Hospital[facility] Condition: Stable Hospital course: -- Syncope, vasovagal due to dehydration s/p IV fluid, Ct head negative Carotid doppler <50% stenosis --Ileus, chronic GS consulted and recommended no further intervention cont diet as tolerated and stool softner CT abdomen/pelvis w/o any obstruction or mass -- SIRS, w/o infectious cause found - negative blood cx, no PNA on CT chest, UA negative - d/c home with outpt f/u w/o abx -- Diffuse sclerotic sandra lesion - out Pt f/u, PSA was normal --Thrombocytopenia and chronic anemia, outpt f/u with hematology - no acute sign of bleeding, h/H stable -- Elevated LFT, trended down Stable for discharge Core Measure Documentation - Palliative Care Palliative Care/ Comfort Measures: Not Applicable Exam - Constitutional Vitals: Temp Pulse Resp BP Pulse Ox 98.1 F 66 18 172/91 84 05/30/19 07:15 05/30/19 07:15 05/30/19 07:15 05/30/19 07:15 05/30/19 07:15 Plan Activity: advance as tolerated, fall precautions Diet: regular Additional Instructions: Fall Precautions. Plenty fluids, stool softeners as needed Follow up with: PRITI RODGERS MD [Staff Physician] - 7 Days AMSTERDAM ROMAINESTILLMORE MD MAMI [Primary Care Provider] - 3-5 Days YENI DOE MD [Staff Physician] - 7 Days Prescriptions: hydrALAZINE [Apresoline TAB] 10 mg PO BID #30 tablet Lactulose [Cephulac] 30 gm PO QDAY 14 Days Docusate Sodium [Colace] 100 mg PO BID PRN #30 capsule PRN Reason: Constipation
[2019-05-30 13:05] VITALS: BP 156/89
[2019-05-30] MEDS ORDERED: hydrALAZINE 25 MG TAB PO SCH (14:00)
--- NOTE | 2019-06-09 10:52 | Progress Note ---
Assessment and Plan (1) Ileus, chronic GS consulted and recommended no further intervention cont diet as tolerated and stool softner CT abdomen/pelvis w/o any obstruction or mass (2) Syncope, vasovagal due to dehydration s/p IV fluid, Ct head negative Carotid doppler <50% stenosis (3) SIRS, w/o infectious cause found - negative blood cx, no PNA on CT chest, UA negative - d/c home with outpt f/u w/o abx (4) Diffuse sclerotic sandra lesion - out Pt f/u, PSA was normal (5) Thrombocytopenia and chronic anemia, outpt f/u with hematology - no acute sign of bleeding, h/H stable (6) Elevated LFT, trended down Disposition: pending discharge on appeal Subjective Date of service: 05/29/19 Interval history: patient seen and examined discussed with family at bedside discussed with GS personally He is having small volume loose stool patient was discharged today but his appealed for d/c Objective - Constitutional General appearance: Present: mild distress, other (illooking) - EENT Eyes: PERRL, EOM intact ENT: hearing intact, clear oral mucosa Ears: bilateral: normal - Neck Neck: supple, normal ROM - Respiratory Respiratory effort: normal Respiratory: bilateral: CTA - Cardiovascular Rhythm: regular Heart Sounds: Present: S1 & S2. Absent: gallop, rub Extremities: pulses intact, No edema, normal color, Full ROM - Gastrointestinal General gastrointestinal: Present: soft, non-tender, non-distended, normal bowel sounds - Integumentary Integumentary: clear, warm, dry - Musculoskeletal Musculoskeletal: 1, strength equal bilaterally - Neurologic Neurologic: moves all extremities - Psychiatric Psychiatric: memory intact, appropriate mood/affect, intact judgment & insight - Labs CBC & Chem 7: 05/29/19 04:26 05/29/19 04:26 - Imaging and cardiology CT scan - abdomen: report reviewed
== END 2019-05-30 12:00 | disposition home or self-care (01) ==
LOC: ED 07:17 → INTOOBSV 12:38 → 4A 12:38
PROVIDERS: ADMIT Internal Medicine; ATTEND Internal Medicine
DX: K56.7 Ileus, unspecified (principal); R55 Syncope and collapse; J44.1 Chronic obstructive pulmonary disease with (acute) exacerbation; R09.02 Hypoxemia; D69.6 Thrombocytopenia, unspecified; E80.6 Other disorders of bilirubin metabolism
CPT/HCPCS: 36415; 70450; 71275; 74022; 74177; 80048; 80053; 80076; 81001; 82140; 82962; 83036; 83690; 83880; 84153; 84484; 85007; 85025; 85379; 85610; 85730; 86850; 86900; 86901; 87040; 93005; 93010; 93880; 94644; 96361; 96365; 96366; 96375; 99284; G0378; J0360; J0692; J2060; J3486; J7030; Q9967; 96374

== ENCOUNTER 2019-07-02 09:14 | Outpatient (CLI) | payer OTHER ==
--- NOTE | 2019-07-02 14:34 | Nuclear Medicine Report ---
NUCLEAR MEDICINE BONE SCAN, WHOLE BODY INDICATION: SECONDARY MALIGNANT NEOPLASM OF BONE,NALLIGNANT NEOPLASM OF PROST. TECHNIQUE: 26 mCi of Tc-99m MDP were injected IV. Whole body images were obtained. COMPARISON: CT chest abdomen pelvis dated 05/28/2019. FINDINGS: Skeletal Structures: Fairly symmetric, likely degenerative uptake is present involving the shoulders and feet.. Skeletal Lesions: None. No metastatic pattern is detected. Soft Tissues: Normal. Kidneys: Normal, symmetric activity. Additional Findings: None. IMPRESSION: No evidence for metastatic disease to the bones on bone scan. The bony structures are diffusely scle rotic on the CT images. There is suggestion of osteonecrotic changes in the thoracic spine resembling findings associated with sickle cell disease. A systemic/metabolic process is suspected over metasta tic disease. Please correlate with the patient's clinical history. Signer Name: Serafin Muir Jr, MD Signed: 07/02/2019 2:30 PM Workstation Name: [id number]
[2019-07-03] MEDS ORDERED: SODIUM CHLORIDE 0.9% 1000 ML 1,000 ML ONE (19:49)
== END 2019-07-02 09:15 | disposition home or self-care (01) ==
LOC: NM 09:14
PROVIDERS: ATTEND Internal Medicine Hematology & Oncology
DX: C79.51 Secondary malignant neoplasm of bone (principal); R97.20 Elevated prostate specific antigen [PSA]; C61 Malignant neoplasm of prostate
CPT/HCPCS: 78306; A9503; J7030